=== PATIENT | female | born 1975 | race Caucasian/White ===

== ENCOUNTER 2017-06-12 06:29 | Day surgery (SDC) | payer OTHER ==
[~2017-06-12] VITALS: Ht 160 cm; Wt 71.2 kg
[~2017-06-12 06:29] MED LIST: ALEVE220 MG PO; IBUPROFEN200 M1 PO; NEURONTIN100 MG PO
[2017-06-12 07:36] VITALS: BP 111/58
[2017-06-12] MEDS ORDERED: ENDOCET 5-3251 EACH PO (10:14)
[2017-06-12] MEDS ORDERED: IBUPROFEN800 MG PO (10:14)
[2017-06-12 12:12] VITALS: BP 116/68
[2017-06-12 13:41] VITALS: BP 115/70
[2017-06-12 13:47] VITALS: BP 122/96
== END 2017-06-12 14:01 | disposition home or self-care (01) ==
LOC: SDC 06:29
DX: N80.0 Endometriosis of uterus (principal); N72 Inflammatory disease of cervix uteri; N80.6 Endometriosis in cutaneous scar; N94.6 Dysmenorrhea, unspecified; F41.8 Other specified anxiety disorders; F17.210 Nicotine dependence, cigarettes, uncomplicated
CPT/HCPCS: 88305; 88307; J0330; J0690; J1170; J1885; J2250; J2405; J2765; J3010